=== PATIENT | female | born 1960 | race African-American/Black ===

== ENCOUNTER 2022-01-14 09:02 | Emergency (ER) | payer BC ==
[~2022-01-14] VITALS: Ht 160 cm; Wt 91.6 kg
[2022-01-14] MEDS ORDERED: DIAZEPAM 2 MG TAB PO STA (09:48)
[2022-01-14] MEDS ORDERED: KETOROLAC TROMETHAMINE 60 MG/2 ML VIAL IM STA (09:48)
== END 2022-01-14 10:09 | disposition home or self-care (01) ==
LOC: ER 09:08
DX: M54.42 Lumbago with sciatica, left side (principal)
CPT/HCPCS: 99282; J1885